=== PATIENT | female | born 1980 | race Hispanic/Latino ===

== ENCOUNTER → 2021-02-04 | Outpatient (CLI) | payer MEDICAID ==
[~2021-02-04] VITALS: Ht 162.6 cm; Wt 88.6 kg
[~2021-02-04] MED LIST: CEFAZOLIN SODIUM 1 GM VIAL IVP ONE; CLON2TAB11 PO; SODIUM CHLORIDE 0.9% 1000ML 1,000 ML IV SCH
[2021-02-04 13:55] LABS: BASOPHILS % (AUTO) 0.2 % (0.0-5.0); EOSINOPHILS % (AUTO) 0.8 % (0.0-8.0); HEMATOCRIT 37.4 % (36-48); LYMPHOCYTES % (AUTO) 33.2 % (21.0-51.0); MEAN CORPUSCULAR HGB CONC 30.7 g/dL (32.0-36.0); MEAN CORPUSCULAR VOLUME 84.6 fL (79-99); MONOCYTES % (AUTO) 8.7 % (3.0-13.0); NEUTROPHILS % (AUTO) 56.9 % (40.0-77.0); PLATELET COUNT (AUTO) 330 K/uL (130-400); RED BLOOD CELL COUNT(AUTO) 4.42 MIL/uL (4.00-5.50); RED CELL DISTRIBUTION WIDTH 12.7 % (11.0-15.5); WHITE BLOOD COUNT (AUTO) 4.8 K/uL (4.8-10.8)
[2021-02-04 14:02] LABS: CREATININE 0.6 mg/dL (0.5-1.5); POTASSIUM 3.9 mmol/L (3.5-5.1)
[2021-02-04 14:05] LABS: INR 1.05 (0.85-1.15); PROTHROMBIN TIME 11.4 SEC (9.6-11.6)
[2021-02-07 15:43] VITALS: BP 153/84
== END | disposition home or self-care (01) ==
LOC: DAH 10:00 → EDSTATUS 02-08 08:00
PROVIDERS: ATTEND Surgery
DX: K80.13 Calculus of gallbladder with acute and chronic cholecystitis with obstruction (principal); Z20.822 Contact with and (suspected) exposure to COVID-19
CPT/HCPCS: 36415; 80048; 84703; 85025; 85610; 85730; A6260; C9803; U0003

== ENCOUNTER 2023-05-12 13:32 | Emergency (ER) | payer MEDICAID, OTHER ==
[~2023-05-12 13:32] MED LIST changes: -CEFAZOLIN SODIUM 1 GM VIAL IVP ONE; -SODIUM CHLORIDE 0.9% 1000ML 1,000 ML IV SCH
[2023-05-12 14:27] VITALS: BP 144/79; PULSE 67; RESP 18; O2SAT 100
== END 2023-05-12 17:16 | disposition left against medical advice (07) ==
LOC: EDH 13:32
DX: R07.0 Pain in throat (principal); R06.02 Shortness of breath; R05.9 Cough, unspecified; R07.9 Chest pain, unspecified
CPT/HCPCS: 93005